=== PATIENT | male | born 1965 | race Caucasian/White ===

== ENCOUNTER 2022-04-03 07:10 | Day surgery (SDC) | payer BC ==
[~2022-04-03] VITALS: Ht 180.3 cm; Wt 122.0 kg
[~2022-04-03 07:10] MED LIST: ALDACTONE25 MG PO; COREG12.5 MG PO; IBUPROFEN200 M1 PO; LISINOPRIL-HCT1 EACH PO; ZESTRIL20 MG PO
--- NOTE | 2022-04-03 10:13 | NUR ---
04/03/22 1013 Kendra Alcala 1010 PATIENT ARRIVES TO PACU UNRESPONSIVE TO PAIN, ORAL AIRWAY IN PLACE. RESP EVEN AND UNLABORED, MASK AT 10 LITERS, DECREASED TO 6 LITERS.
--- NOTE | 2022-04-03 12:43 | OR ---
[facility] [address], [place] [address] Signed DATE OF OPERATION: 04/03/2022 SURGEON: Dino Gregorio MD PREOPERATIVE DIAGNOSIS: Paternal grandfather with colon cancer at age 50. POSTOPERATIVE DIAGNOSIS: Minimal internal hemorrhoids. PROCEDURE: Colonoscopy biopsy. ESTIMATED BLOOD LOSS: None. INDICATIONS: Félix is a 56-year-old gentleman, asked to see me for his initial colonoscopy. His paternal grandfather was diagnosed and of colon cancer at the age of 50. Félix currently has no lower GI complaints. In the office, I gave him a pamphlet on colonoscopy. He understands the nature of that test. There is risk including, but not limited to gas bloating, crampy abdominal pain, bleeding, perforation requiring surgery, and missed diagnosis. We also reviewed the need for monitored anesthesia care. He has a very full face, heavy neck, chest and abdomen. He drinks between 3 and 6 beers a day but has switched to vodka. He also has sleep apnea, requiring his CPAP machine. He had expressed understanding and wished to proceed. PROCEDURE NOTE: Félix was taken into our endoscopy suite and placed in the left lateral decubitus position. He was given monitored anesthesia care per our nurse patient transport orderly. A digital rectal exam was performed. I could just feel the bottom of the prostate gland and it is a little indurated, otherwise not overly concerning. The adult colonoscope had been introduced and advanced quite readily up into the cecum itself. His prep was quite good. We could easily see the appendiceal orifice and the ileocecal valve. The scope was then slowly withdrawn. We took pictures throughout for photodocumentation. The entire colon and rectum were unremarkable. Upon retroflexion of the scope, he has just very tiny internal hemorrhoid columns. After this, the gas was suctioned out and colonoscope removed. Félix tolerated the procedure quite well. RECOMMENDATIONS: Electronically Signed By: DINO GREGORIO MD 04/03/22 1243 PATIENT NAME: FÉLIX KRISHNAMURTHY OPERATIVE REPORT DATE OF : 69 REPORT #: [id number] PHYSICIAN: DINO GREGORIO MD PCP: JACKIE CALABRESE REPORT IS CONFIDENTIAL AND NOT TO BE RELEASED WITHOUT AUTHORIZATION [address] [address] Signed Félix can return in 5 years for repeat colonoscopy due to his family history. Dino Gregorio MD ALB/MODL /[id number] cc: MD Jackie Gray PA Copies: DINO GREGORIO MD, LINDA PA ~ Electronically Signed By: DINO GREGORIO MD 04/03/22 1243 PATIENT NAME: FÉLIX KRISHNAMURTHY OPERATIVE REPORT DATE OF : 69 REPORT #: [id number] PHYSICIAN: DINO GREGORIO MD PCP: JAKCIE CALABRESE REPORT IS CONFIDENTIAL AND NOT TO BE RELEASED WITHOUT AUTHORIZATION
== END 2022-04-03 10:50 | disposition home or self-care (01) ==
LOC: OPS 07:10 → DS 07:10 → OPS 09:15
PROVIDERS: ATTEND Colon & Rectal Surgery
PROC: 0DJD8ZZ Inspection of Lower Intestinal Tract, Via Natural or Artificial Opening Endoscopic (ICD-10-PCS; principal; 2022-04-03 09:15)
DX: Z12.11 Encounter for screening for malignant neoplasm of colon (principal); K64.8 Other hemorrhoids; G47.33 Obstructive sleep apnea (adult) (pediatric); I10 Essential (primary) hypertension; E78.5 Hyperlipidemia, unspecified; E66.9 Obesity, unspecified; Z68.37 Body mass index [BMI] 37.0-37.9, adult; Z80.0 Family history of malignant neoplasm of digestive organs; F10.99 Alcohol use, unspecified with unspecified alcohol-induced disorder
CPT/HCPCS: J0461; J2704; J7121